=== PATIENT | male | born 1945 | race Caucasian/White ===

== ENCOUNTER 2018-03-05 15:56 | Outpatient (REF) | payer MEDICARE, SELFPAY ==
[2018-03-05 21:08] LABS: ALT 26 U/L (12-78); AST 15 U/L (15-37); Albumin 3.4 g/dL (3.4-5.0); Alkaline Phosphatase 94 U/L (46-116); Anion Gap 7.6 mmol/L (3-11); BUN 16 mg/dL (7-18); Bilirubin, Total 0.3 mg/dL (0.2-1.0); CO2 30.4 mmol/L (21.0-32.0); CREATININE 1.15 mg/dL (0.70-1.30); Calcium 8.6 mg/dL (8.5-10.1); Chloride 97 mmol/L (98-107); Glucose 228 mg/dL (70-100); Potassium 4.2 mmol/L (3.5-5.1); Sodium 135 mmol/L (136-145); Total Protein 7.6 g/dL (6.4-8.2)
== END 2018-03-05 16:16 ==
LOC: NCHCN 15:56
PROVIDERS: PCP Internal Medicine; Visit Provider Internal Medicine
DX: I73.9 Peripheral vascular disease, unspecified (principal); E78.5 Hyperlipidemia, unspecified; I10 Essential (primary) hypertension; E11.9 Type 2 diabetes mellitus without complications
CPT/HCPCS: 80053

== ENCOUNTER 2020-07-07 | Outpatient (REF) | payer MEDICARE, SELFPAY ==
[2020-07-07 16:39] LABS: ALT 33 U/L (16-63); AST 16 U/L (15-37); Albumin 3.5 g/dL (3.4-5.0); Alkaline Phosphatase 99 U/L (46-116); Anion Gap 9.1 mmol/L (3-11); BUN 35 mg/dL (7-18); Bilirubin, Total 0.6 mg/dL (0.2-1.0); CO2 27.9 mmol/L (21.0-32.0); CREATININE 1.6 mg/dL (0.70-1.30); Calcium 9.1 mg/dL (8.5-10.1); Chloride 96 mmol/L (98-107); Potassium 4.9 mmol/L (3.5-5.1); Sodium 133 mmol/L (136-145); Total Protein 7.9 g/dL (6.4-8.2)
[2020-07-07 16:54] LABS: Glucose 516 mg/dL (74-106); HCT 35.8 % (40.0-50.0); HGB 11.9 g/dL (13.5-17.5); MCH 31.5 pg (27.0-33.0); MCHC 33.2 % (32.0-36.0); MCV 94.7 fL (80-95); MPV 11.5 fL (8.0-11.0); Platelet Count 208 10^3/uL (130-400); RBC 3.78 10^6/uL (4.36-5.78); RDW 11.8 % (11.8-14.1); RDW-SD 40.4 fL; WBC 6.88 10^3/uL (4.4-10.8)
[2020-07-08 13:08] LABS: LDL CHOLESTEROL 71 mg/dL (<100)
== END 2020-07-08 00:31 | disposition home or self-care (01) ==
LOC: NCHCN
PROVIDERS: PCP Internal Medicine; Visit Provider Internal Medicine
DX: E78.2 Mixed hyperlipidemia (principal); I25.5 Ischemic cardiomyopathy; L97.511 Non-pressure chronic ulcer of other part of right foot limited to breakdown of skin; I48.0 Paroxysmal atrial fibrillation
CPT/HCPCS: 80053; 83721; 85027

== ENCOUNTER 2020-07-18 14:26 | Outpatient (REF) | payer MEDICARE, SELFPAY ==
--- NOTE | 2020-07-18 14:00 | SKI_PTH ---
PATIENT: Deni Terrazas LOC: [facility] U#:[id number] AGE/SX: 74/M ROOM: RE07/18/[address]: Clark Cordova : 1945 BED: DIS: 07/18/2020 SPEC #: [id number] RECD: 07/18/20 18:19 STATUS: AJIT REBubba #: [id number] EMMIE: 07/18/20 14:[address]: Clark Cordova DEPT: Surgical Specimen RECD BY: Lynn Zavaleta Tissues: 1 - SKIN BIOPSY(SHAVE/PUNCH) Procedures: SKIN LEVEL 4 Comments: [id number]
== END 2020-07-18 14:27 | disposition home or self-care (01) ==
LOC: NCHCN 14:26
PROVIDERS: PCP Internal Medicine; Visit Provider Internal Medicine
DX: C44.619 Basal cell carcinoma of skin of left upper limb, including shoulder (principal)
CPT/HCPCS: 88305

== ENCOUNTER 2021-01-18 16:28 | Outpatient (REF) | payer MEDICARE, SELFPAY | END 2021-01-18 16:29 | disposition home or self-care (01) | LOC: NCHCN 16:28 | PROVIDERS: PCP Internal Medicine; Visit Provider Physician Assistant | DX: L03.032 Cellulitis of left toe (principal); L08.89 Other specified local infections of the skin and subcutaneous tissue | CPT/HCPCS: 87077; 87070; 87186; 87205 ==

== ENCOUNTER 2021-02-16 17:21 | Outpatient (REF) | payer MEDICARE, SELFPAY ==
[2021-02-16 19:07] LABS: HCT 36.5 % (40.0-50.0); MCH 31.3 pg (27.0-33.0); MCHC 32.9 % (32.0-36.0); MCV 95.3 fL (80-95); MPV 11.2 fL (8.0-11.0); Platelet Count 209 10^3/uL (130-400); RBC 3.83 10^6/uL (4.36-5.78); RDW 11.8 % (11.8-14.1); RDW-SD 40.6 fL; WBC 8.32 10^3/uL (4.4-10.8)
[2021-02-16 19:18] LABS: Anion Gap 7.6 mmol/L (3-11); BUN 37 mg/dL (7-18); CO2 29.4 mmol/L (21.0-32.0); CREATININE 1.6 mg/dL (0.70-1.30); Calcium 9.5 mg/dL (8.5-10.1); Chloride 103 mmol/L (98-107); Estimated GFR 42.58 (mL/min/1.73m2); Glucose 131 mg/dL (74-106); Potassium 4.7 mmol/L (3.5-5.1); Sodium 140 mmol/L (136-145)
[2021-02-16 19:43] LABS: Vitamin D 25 Total 41.2 ng/mL (30-100)
== END 2021-02-16 17:22 | disposition home or self-care (01) ==
LOC: NCHCN 17:21
PROVIDERS: PCP Internal Medicine; Visit Provider Internal Medicine
DX: I10 Essential (primary) hypertension (principal); E11.40 Type 2 diabetes mellitus with diabetic neuropathy, unspecified; E11.621 Type 2 diabetes mellitus with foot ulcer; Z79.4 Long term (current) use of insulin
CPT/HCPCS: 80048; 82306; 85027

== ENCOUNTER 2021-07-17 17:19 | Outpatient (REF) | payer MEDICARE, SELFPAY ==
[2021-07-17 19:29] LABS: ALT 68 U/L (16-63); AST 42 U/L (15-37); Albumin 4.1 g/dL (3.4-5.0); Alkaline Phosphatase 71 U/L (46-116); Anion Gap 6.8 mmol/L (3-11); BUN 39 mg/dL (7-18); Bilirubin, Total 0.6 mg/dL (0.2-1.0); CO2 29.2 mmol/L (21.0-32.0); CREATININE 1.6 mg/dL (0.70-1.30); Calcium 9.9 mg/dL (8.5-10.1); Chloride 101 mmol/L (98-107); Estimated GFR 42.58 (mL/min/1.73m2); Glucose 107 mg/dL (74-106); Potassium 4.5 mmol/L (3.5-5.1); Sodium 137 mmol/L (136-145); Total Protein 9.1 g/dL (6.4-8.2)
[2021-07-17 19:40] LABS: Abs Immature Grans 0.02 10^3/uL (0.0-0.06); Absolute Basophil Count 0.04 10^3/uL (0.0-0.2); Absolute Eosinophil Count 0.18 10^3/uL (0.0-0.7); Absolute Lymphocyte Count 1.58 10^3/uL (1.2-3.4); Absolute Monocyte Count 0.83 10^3/uL (0.1-0.8); Absolute Neutrophil Count 5.17 10^3/uL (1.2-6.7); Basophils % 0.5; Eosinophils % 2.3; HCT 41.5 % (40.0-50.0); HGB 13.5 g/dL (13.5-17.5); Immature Grans % 0.3; Lymphocytes % 20.2; MCHC 32.5 % (32.0-36.0); MCV 95.4 fL (80-95); MPV 11.8 fL (8.0-11.0); Monocytes % 10.6; Neutrophils % 66.1; Nucleated RBC 0 %; Platelet Count 180 10^3/uL (130-400); RBC 4.35 10^6/uL (4.36-5.78); RDW-SD 42.4 fL; WBC 7.82 10^3/uL (4.4-10.8)
== END 2021-07-17 17:20 | disposition home or self-care (01) ==
LOC: NCHCN 17:19
PROVIDERS: PCP Internal Medicine; Visit Provider Internal Medicine
DX: E11.9 Type 2 diabetes mellitus without complications (principal); F32.9 Major depressive disorder, single episode, unspecified; G45.3 Amaurosis fugax
CPT/HCPCS: 80053; 85025

== ENCOUNTER 2023-08-22 17:52 | Outpatient (REF) | payer MEDICARE, SELFPAY ==
[2023-08-22 19:07] LABS: HCT 36.2 % (40.0-50.0); HGB 12.4 g/dL (13.5-17.5); MCHC 34.3 % (32.0-36.0); MCV 93 fL (80-95); MPV 11.3 fL (8.0-11.0); Platelet Count 184 10^3/uL (130-400); RBC 3.88 10^6/uL (4.36-5.78); RDW 11.9 % (11.8-14.1); WBC 6.95 10^3/uL (4.4-10.8)
[2023-08-22 19:24] LABS: ALT 22 U/L (16-63); AST 16 U/L (15-37); Albumin 3.6 g/dL (3.4-5.0); Alkaline Phosphatase 65 U/L (46-116); Anion Gap 8.6 mmol/L (3-11); BUN 56 mg/dL (7-18); Bilirubin, Total 0.7 mg/dL (0.2-1.0); CO2 27.4 mmol/L (21.0-32.0); CREATININE 1.9 mg/dL (0.70-1.30); Calcium 9.7 mg/dL (8.5-10.1); Calculated LDL 57 mg/dL (<100); Chloride 103 mmol/L (98-107); Cholesterol 136 mg/dL (<200); Estimated GFR 36.33 (mL/min/1.73m2); Glucose 100 mg/dL (74-106); HDL Cholesterol 46 mg/dL (40-60); Potassium 4.7 mmol/L (3.5-5.1); Sodium 139 mmol/L (136-145); Total Protein 8.3 g/dL (6.4-8.2); Triglyceride 169 mg/dL (<150)
== END 2023-08-22 17:53 | disposition home or self-care (01) ==
LOC: NCHCN 17:52
PROVIDERS: PCP Internal Medicine; Visit Provider Internal Medicine
DX: E78.2 Mixed hyperlipidemia (principal)
CPT/HCPCS: 80053; 80061; 85027

== ENCOUNTER 2024-07-27 15:27 | Outpatient (REF) | payer MEDICARE, SELFPAY ==
[2024-07-27 18:44] LABS: HGB 11.3 g/dL (13.5-17.5); MCH 32.6 pg (27.0-33.0); MCHC 33.2 % (32.0-36.0); MCV 98 fL (80-95); MPV 11.1 fL (8.0-11.0); Platelet Count 165 10^3/uL (130-400); RBC 3.47 10^6/uL (4.36-5.78); RDW-SD 45.7 fL; WBC 4.98 10^3/uL (4.4-10.8)
[2024-07-27 19:25] LABS: BUN 64 mg/dL (7-18); C-Reactive Protein 0.58 mg/dL (<or=0.5); Calcium 9.4 mg/dL (8.5-10.1); Chloride 106 mmol/L (98-107); Estimated GFR 33.95 (mL/min/1.73m2); Glucose 70 mg/dL (74-106); Potassium 4.7 mmol/L (3.5-5.1); Sodium 140 mmol/L (136-145)
== END 2024-07-27 15:28 | disposition home or self-care (01) ==
LOC: NCHCN 15:27
PROVIDERS: PCP Internal Medicine; Visit Provider Internal Medicine
DX: E13.621 Other specified diabetes mellitus with foot ulcer (principal)
CPT/HCPCS: 80048; 85027; 86140